=== PATIENT | male | born 1940 ===

== ENCOUNTER → 2016-05-08 | Outpatient (CLI) | payer OTHER ==
--- NOTE | 2016-05-08 17:35 | DX ---
PA and Lateral Chest May 08, 2016 Indication: Prolonged bronchitis. Comparison: January 12, 2011. Findings: Numerous tiny scattered benign calcified granulomas throughout the right and left lung and right hilum and diffuse mild peribronchial thickening are unchanged since December 2010. No mass, airspace consolidation, edema, or effusion. The heart size is normal. Mild multilevel degenerative disk disease is unchanged. Surgical clips in the right upper quadrant are likely from a previous cho lecystectomy. Impression: 1. No pneumonia or mass. 2. Chronic bronchitis and old granulomatous disease, similar to December 2010.
== END ==
LOC: CIMAGING 16:28
PROVIDERS: ATTEND Family Medicine
DX: J42 Unspecified chronic bronchitis (principal)
CPT/HCPCS: 71020-PO

== ENCOUNTER → 2016-09-13 | Outpatient (CLI) | payer OTHER | LOC: BHFA 09:30 | PROVIDERS: ATTEND Internal Medicine Cardiovascular Disease | DX: R06.09 Other forms of dyspnea (principal) ==

== ENCOUNTER 2017-06-28 10:04 | Emergency (ER) | payer OTHER ==
--- NOTE | 2017-06-28 10:17 | CPEKG ---
Heart Rate: 108 RR Interval: 556 P-R Interval: 148 QRSD Interval: 76 QT Interval: 332 QTC Interval: 445 P Balm: 43 QRS Balm: -5 T Wave Balm: 77 EKG Severity - ABNORMAL ECG - EKG Impression: SINUS TACHYCARDIA EKG Impression: INFERIOR INFARCT, ACUTE EKG Impression: Sinus tachycardia with a rate of 108, normal intervals, left axis, ST elevation EKG Impression: noted in 3 with prominent Q-waves as well. Also approximately 1 mm EKG Impression: ST-elevation in 2 and AVF. Impression inferior infarct, likely acute. Electronically Signed By: Waqas Nunez 09-Jul-2017 15:35:09
[2017-06-28] MEDS ORDERED: NITROGLYCERIN 0.4 MG BTL SL PRN (10:19)
[2017-06-28] MEDS ORDERED: ASPIRIN 81 MG CHEWABLE TAB PO ONE (10:19)
[2017-06-28] MEDS ORDERED: NS 500 ML IV ONE (10:19)
[2017-06-28] MEDS ORDERED: ASPIRIN 81 MG CHEWABLE TAB ONE (10:20)
[2017-06-28] MEDS ORDERED: NITROGLYCERIN 0.4 MG BTL SL ONE (10:21)
[2017-06-28 10:28] LABS: PLATELET COUNT 190 10^3/uL (150-400)
[2017-06-28 10:32] VITALS: TEMP 97.9
[2017-06-28 10:34] VITALS: RESP 20
--- NOTE | 2017-06-28 10:36 | EDPHY ---
H & P Time Seen by Provider: 06/28/17 10:06 HPI/ROS: CHIEF COMPLAINT: Chest pain HISTORY OF PRESENT ILLNESS: Patient states he was using an ice Breaker to remove ice from [employer] yesterday evening when he developed chest pain. This is in the late afternoon or early evening. He had shortness of breath at that time. He states the pain has been 7 to 8/10 continuously since yesterday evening. It radiates to his throat. Does not radiate to the arm, back, abdomen. He has never had pain like this before. He says it feels a bit like heartburn although different than his normal GERD. He did have the chills last night around 9:00 p.m. But that resolved, also complaining of headache. Patient was diagnosed with pneumonia approximately 2 weeks ago and was given antibiotics and prednisone. He has finished the prednisone but not antibiotics. No prior history of heart disease that he knows of. He does have noninsulin dependent diabetes and high blood pressure. REVIEW OF SYSTEMS: Constitutional: No fever, chills present. Eyes: No discharge. ENT: No sore throat. Cardiovascular: Chest pain as per HPI, no palpitations, no leg swelling. Respiratory: Recent pneumonia, improved cough, shortness of breath present. Gastrointestinal: No abdominal pain, no vomiting. Genitourinary: No dysuria. Musculoskeletal: No back pain. Skin: No rashes. Neurological: Headache present, no weakness or numbness. General Appearance: Alert, no distress. Eyes: Pupils equal and round no pallor or injection. ENT, Mouth: Mucous membranes moist. Respiratory: There are no retractions, lungs are clear to auscultation. Cardiovascular: Regular rate and rhythm. Tachycardia, femoral pulses present, no peripheral edema. Gastrointestinal: Abdomen is soft and nontender, no masses, bowel sounds normal. Neurological: Awake, alert, no focal motor or sensory deficits. Skin: Warm and dry, no rashes. Pale. Musculoskeletal: Neck is supple nontender. Extremities are symmetrical, full range of motion, no edema. Psychiatric: Patient is oriented X 3, there is no agitation. Medical/surgical history: Hypertension, [id number] diabetes. Social history: Lives with . Former smoker. Smoking Status: Former smoker Constitutional: Initial Vital Signs Temperature (C) 36.6 C 06/28/17 10:10 Heart Rate 110 H 06/28/17 10:10 Respiratory Rate 20 06/28/17 10:10 Blood Pressure 106/83 H 06/28/17 10:10 O2 Sat (%) 92 06/28/17 10:10 O2 Delivery Mode Nasal Cannula O2 (L/minute) 2 Allergies/Adverse Reactions: cimetidine Allergy (Verified 06/28/17 10:44) Home Medications: Medication Instructions Recorded Albuterol [Proventil Inhaler] 1 - 2 puffs IH HS PRN 04/23/13 Aspirin [Aspirin 81mg (OTC)] 81 mg PO DAILY 04/23/13 Ibuprofen [Motrin 200 mg (OTC)] 400 mg PO Q6 PRN 04/23/13 Omeprazole [Prilosec 20 mg] 20 mg PO BID 04/23/13 Medical Decision Making - Diagnostics Imaging Results: Imaging Impressions Chest X-Ray 06/28/17 10:17 Impression: Nothing acute identified. ED Course/Re-evaluation: 10:15 shows EKG with tachycardia and ST elevation in leads 3, 2 mm, also [address]-elevation in lead 2 and AVF. Deep Q-wave noted in lead 3 as well. Impression inferior myocardial infarction, likely acute. Called [facility] at 10:20 a.m., discussed with charge nurse, howard hill. 10:25 a.m. discussed with band tumbler, Dr. Alvarez who agreed to take patient in transfer. [id number] patient transferred per [facility]. Differential Diagnosis: Differential diagnosis includes but is not limited to ST elevation HI, pneumonia , congestive heart failure, pulmonary embolism, dissection. EKG diagnostic on my review with ST-elevation in deep cues in inferior leads. Discussed with Cardiology at [facility] and plan for transfer for likely cardiac catheterization. No evidence of hypoxia, pneumonia, CHF. No a arrhythmias noted during his brief ED stay. Less likely venous thromboembolic disease or vascular abnormality but evaluation to continue at [facility]. Transferred in serious condition. Critical Care Time: I spent a total of 35 minutes of critical care time in obtaining history, performing a physical exam, bedside monitoring of interventions, collecting and interpreting tests and discussion with consultants but not including time spent performing procedures. - Data Points Laboratory Results: Laboratory Results 06/28/17 10:26 06/28/17 10:26 03/16/18 03/16/18 10:26 10:26 WBC 13.88 10^3/uL H 10^3/uL (3.80-9.50) RBC 4.43 10^6/uL 10^6/uL (4.40-6.38) Hgb 14.3 g/dL g/dL (13.7-17.5) Hct 42.4 % % (40.0-51.0) MCV 95.7 fL fL (81.5-99.8) MCH 32.3 pg pg (27.9-34.1) MCHC 33.7 g/dL g/dL (32.4-36.7) RDW 14.5 % % (11.5-15.2) Plt Count 190 10^3/uL 10^3/uL (150-400) MPV 10.4 fL fL (8.7-11.7) Neut % (Auto) 70.9 % % (39.3-74.2) Lymph % (Auto) 13.2 % L % (15.0-45.0) Jay % (Auto) 9.9 % % (4.5-13.0) Eos % (Auto) 4.9 % % (0.6-7.6) Baso % (Auto) 0.4 % % (0.3-1.7) Nucleat RBC Rel Count 0.0 % % (0.0-0.2) Absolute Neuts (auto) 9.84 10^3/uL H 10^3/uL (1.70-6.50) Absolute Lymphs (auto) 1.83 10^3/uL 10^3/uL (1.00-3.00) Absolute Monos (auto) 1.37 10^3/uL H 10^3/uL (0.30-0.80) Absolute Eos (auto) 0.68 10^3/uL H 10^3/uL (0.03-0.40) Absolute Basos (auto) 0.06 10^3/uL 10^3/uL (0.02-0.10) Absolute Nucleated RBC 0.00 10^3/uL 10^3/uL (0-0.01) Immature Gran % 0.7 % % (0.0-1.1) Immature Gran # 0.10 10^3/uL 10^3/uL (0.00-0.10) Sodium 140 mEq/L mEq/L (135-145) Potassium 4.2 mEq/L mEq/L (3.5-5.2) Chloride 104 mEq/L mEq/L (97-110) Carbon Dioxide 26 mEq/l mEq/l (22-31) Anion Gap 10 mEq/L mEq/L (8-16) BUN 18 mg/dL mg/dL (7-23) Creatinine 1.2 mg/dL mg/dL (0.7-1.3) Estimated GFR 59 Glucose 160 mg/dL H mg/dL (70-100) Calcium 8.8 mg/dL mg/dL (8.5-10.4) Troponin I < 0.012 ng/mL ng/mL (0.000-0.034) Medications Given: Discontinued Medications Aspirin (Aspirin) 324 mg PO EDNOW ONE Stop: 06/28/17 10:20 Last Admin: 06/28/17 10:22 Dose: 324 mg Sodium Chloride (Ns) 500 mls @ 1,000 mls/hr IV EDNOW ONE PRN Reason: Protocol Stop: 06/28/17 10:48 Last Admin: 06/28/17 10:27 Dose: 500 mls Nitroglycerin (Nitrostat) 0.4 mg SL Q5M PRN PRN Reason: Chest Pain Last Admin: 06/28/17 10:33 Dose: 1 tab Departure - Departure Disposition: Acute Care Hospital Not [facility] Referrals: Celeste High [Primary Care Provider] - As per Instructions
[2017-06-28 10:51] VITALS: BP 107/66; PULSE 102; O2SAT 96
== END 2017-06-28 10:42 | disposition short-term general hospital (02) ==
LOC: CED 10:04
DX: I24.9 Acute ischemic heart disease, unspecified (principal); I21.3 ST elevation (STEMI) myocardial infarction of unspecified site; I10 Essential (primary) hypertension; E11.9 Type 2 diabetes mellitus without complications; Z79.82 Long term (current) use of aspirin; Z87.891 Personal history of nicotine dependence
CPT/HCPCS: 71045-PO; 80048-PO; 84484-PO; 85025-PO